=== PATIENT | female | born 1970 | race Caucasian/White ===

== ENCOUNTER 2017-06-05 20:55 | Emergency (ER) | payer OTHER ==
[~2017-06-05] VITALS: Ht 160 cm; Wt 54.0 kg
[~2017-06-05 20:55] MED LIST: IMD/2 PO
[2017-06-05 21:02] VITALS: TEMP 37.3; Ht 160 cm; Wt 54.0 kg
--- NOTE | 2017-06-05 22:24 | DIAGNOSTIC IMAGING REPORT ---
CT SCAN OF THE CERVICAL SPINE CLINICAL HISTORY: Right cervical radiculopathy. COMPARISON STUDY: No priors. TECHNIQUE: CT scan of the cervical spine is performed from the skull base to the upper thoracic spine. Images are reviewed in the axial, sagittal, and coronal planes. IV contrast was not administered for this examination. A dose lowering technique was utilized adhering to the principles of ALARA. CT DOSE: 190.88 mGy.cm FINDINGS: Skeletal structures: The skeletal structures are well mineralized. There is no evidence of fracture or subluxation involving the cervical spine. Vertebral body height is maintained. There is minimal anterolisthesis at C3-C4. Alignment is otherwise preserved. There is straightening of the cervical lordosis with mild reversal centered at C4. The odontoid process and lateral masses are intact. The atlantoaxial articulation is preserved. The spinous processes appear intact. Small anterior osteophytes are seen in the mid to lower cervical region. Uncovertebral and facet arthropathy cause mild right neural frontal stenosis at C4-C5 and C5-C6, as well as on the left at C5-C6. Intervertebral discs: There is mild disc space narrowing seen at C4-C5, C5-C6, and C6-C7. The remaining disc spaces are maintained. Central canal: Small posterior disc osteophyte complexes at C4-C5, C5-C6, and C6-C7 may contribute to mild acquired compromise of the central canal. Soft tissues: The prevertebral and paraspinous soft tissues are within normal limits. Shotty cervical lymph nodes are incidentally noted. Calvarium: The visualized calvarium at the skull base appears intact. Brain parenchyma: Partially visualized brain parenchyma the skull base is within normal limits. Mastoids: The mastoid air cells are well pneumatized. Lung apices: Clear as visualized. IMPRESSION: 1. There is no evidence of fracture or subluxation involving the cervical spine. 2. Mild spondylotic change as above. Electronically signed by: Nhan Alarcon M.D. 06/05/2017 10:23 PM Dictated Date/Time: 06/05/2017 10:19 PM
[2017-06-05] MEDS ORDERED: OMEGCAP2 PO (22:32)
[2017-06-05] MEDS ORDERED: MULT-240 PO (22:32)
[2017-06-05] MEDS ORDERED: MISCCAP55 PO (22:32)
[2017-06-05] MEDS ORDERED: METH4PAK PO (22:53)
[2017-06-05 23:00] VITALS: BP 131/56; PULSE 72; O2SAT 100
--- NOTE | 2017-06-06 00:43 | EMERGENCY ROOM VISIT NOTE ---
History First contact with patient: 21:14 Chief Complaint: SHOULDER PAIN Stated Complaint: R SHOULDER PAIN, SPREADING THROUGH HEAD History of Present Illness The patient is a 46 year old female who presents to the Emergency Room with complaints of right shoulder and neck pain extending to her head with occasional migraine headaches. The patient reports that she recently had EMG tests that were positive for bilateral carpal tunnel syndrome. She is under the care of Dr. Mari at the [facility] orthopedic clinic, but has not had her carpal tunnel release surgery scheduled. The patient reports that she has had intermittent migraines for several years, and usually has neck pain associated with her migraines. It is a side sleeper, and occasionally has headaches and right upper extremity pain when awakening. She denies any recent injury to the neck or shoulder. Her pain is worsened when looking to the left. She has not noticed any loss of statistical developer of the right hand, but does report occasional paresthesias of the entire right hand. The patient is [id number]. The patient has seen a chiropractor in the past for her neck, but has never undergone physical therapy. Her chiropractor did get an x-ray of her neck showing an unspecified bony fusion. The patient has not had any additional advanced MRI studies, including an MRI of the neck. She currently rates her discomfort a 7 out of 10. Review of Systems 10 system review was performed and was negative except for pertinent positives and negatives as indicated in history of present illness Past Medical/Surgical History Medical Problems: (1) Bronchitis Surgical Problems: (1) Previous section Family History Diabetes mellitus Heart disease Hypertension Social History Smoking Status: Current Every Day Smoker Alcohol Use: occasionally Marital Status: Housing Status: lives with family Occupation Status: employed Current/Historical Medications Scheduled Methylprednisolone (Medrol Dosepak), 0 PO DAILY Misc Natural Products (Dandelion Root), 520 MG PO UD Multiple Vitamins W/ Minerals (Womens One Daily), 1 TAB PO DAILY [place]-3 Fatty Acids (Fish Oil), 1 CAP PO DAILY Allergies Uncoded Allergies: BANANA (Allergy, Intermediate, Nausea/Vomiting, GI Symptoms, 06/05/16) Physical Exam Vital Signs Date Time Temp Pulse Resp B/P (MAP) Pulse Ox O2 Delivery O2 Flow Rate FiO2 06/05/17 23:00 72 131/56 100 06/05/17 21:02 37.3 85 18 142/85 100 Room Air Physical Exam CONSTITUTIONAL: Healthy and well nourished. Alert and oriented X 3 with positive affect. She does appear in mild discomfort. HEENT: Normocephalic, atraumatic. Pupils equal, round and reactive. Ears and nares are clear. No scleral icterus or conjunctival injection. NECK: Examination shows worsening right shoulder discomfort with left lateral gaze. No palpable muscle spasms noted. RESPIRATORY: Clear to auscultation bilaterally with no wheezing, crackles, rhonchi or stridor. CARDIOVASCULAR: Regular rate and rhythm with no murmurs, rubs or gallops. MUSCULOSKELETAL: Examination shows tenderness to palpation from the right base of the neck across the trapezius and right interscapular border. No scapular winging noted, or significant worsening discomfort with scapular rotation. She has no significant worsening pain with range of motion of the right shoulder. Equal hand statistical developer bilaterally. Distal pulses are intact. INTEGUMENTARY: No rash or other significant dermatologic conditions noted. NEUROLOGIC: No focal neurologic deficits noted. Right deltoid and right upper extremity sensations are intact. Medical Decision & Procedures ER Provider Diagnostic Interpretation: Noncontrast CT of the cervical spine shows the following: CT SCAN OF THE CERVICAL SPINE CLINICAL HISTORY: Right cervical radiculopathy. COMPARISON STUDY: No priors. TECHNIQUE: CT scan of the cervical spine is performed from the skull base to the upper thoracic spine. Images are reviewed in the axial, sagittal, and coronal planes. IV contrast was not administered for this examination. A dose lowering technique was utilized adhering to the principles of ALARA. CT DOSE: 190.88 mGy.cm FINDINGS: Skeletal structures: The skeletal structures are well mineralized. There is no evidence of fracture or subluxation involving the cervical spine. Vertebral body height is maintained. There is minimal anterolisthesis at C3-C4. Alignment is otherwise preserved. There is straightening of the cervical lordosis with mild reversal centered at C4. The odontoid process and lateral masses are intact. The atlantoaxial articulation is preserved. The spinous processes appear intact. Small anterior osteophytes are seen in the mid to lower cervical region. Uncovertebral and facet arthropathy cause mild right neural frontal stenosis at C4-C5 and C5-C6, as well as on the left at C5-C6. Intervertebral discs: There is mild disc space narrowing seen at C4-C5, C5-C6, and C6-C7. The remaining disc spaces are maintained. Central canal: Small posterior disc osteophyte complexes at C4-C5, C5-C6, and C6-C7 may contribute to mild acquired compromise of the central canal. Soft tissues: The prevertebral and paraspinous soft tissues are within normal limits. Shotty cervical lymph nodes are incidentally noted. Calvarium: The visualized calvarium at the skull base appears intact. Brain parenchyma: Partially visualized brain parenchyma the skull base is within normal limits. Mastoids: The mastoid air cells are well pneumatized. Lung apices: Clear as visualized. IMPRESSION: 1. There is no evidence of fracture or subluxation involving the cervical spine. 2. Mild spondylotic change as above. ED Course Patient history and physical exam were performed. Nurse's notes were reviewed. Vital signs were reviewed and were normal. The patient's blood pressure is normal and will not require PCP evaluation. With the medications were also reviewed. The patient refused any analgesics. I did discuss several different etiologies, explaining that her history and clinical exam findings are most consistent with a right cervical radiculitis. Because she has been having problems with migraines as well, likely cervicogenic etiology, I did suggest performing a noncontrast CT of the neck. The patient was in agreement. CT of the neck does show spondylotic changes another findings as discussed in the previous Diagnostic Interpretation section. It is encouraging that the patient has had a recent EMG study. I did suggest that the patient follow-up with her PCP for further reevaluation. I did suggest that she also follow-up with the [facility], or neurologist to further discuss possible cervicogenic migraines. The patient was encouraged to sleep on her back or in a recliner with a towel wrapped around the neck for support. The patient was provided a prescription for a Medrol dosepak, and encouraged to alternate ibuprofen and Tylenol as needed for additional pain relief. The patient refused any additional perception analgesics because she is very sensitive to medications. The patient was happy with plan of care, and voiced understanding of all discharge instructions. Medical Decision See previous section Impression Primary Impression: Right cervical radiculopathy Departure Information Dispostion Home / Self-Care Condition FAIR Prescriptions Methylprednisolone (MEDROL DOSEPAK) 4 Mg Thad 0 PO DAILY, #1 PKT Prov: Jose Jonas PA 06/05/17 Forms HOME CARE DOCUMENTATION FORM, IMPORTANT VISIT INFORMATION Patient Instructions [facility] Additional Instructions Intermittently apply ice to the base of the neck. Either sleep on your back or in a recliner with a towel wrapped around your neck for support. Ibuprofen 800 mg and/or Tylenol 1000 mg every 8 hours. You may also alternate these medications for more effective pain relief: Ibuprofen --4 HRS--> Tylenol --4 HRS--> ibuprofen --4 HRS--> Tylenol .... Suggest taking Medrol Dosepak for additional symptomatic relief. Follow-up with your family doctor if symptoms are not improving within the next week.
== END 2017-06-05 23:01 | disposition home or self-care (01) ==
LOC: C.EDB 20:56 → C.EDD 23:01
DX: M54.12 Radiculopathy, cervical region (principal); F17.200 Nicotine dependence, unspecified, uncomplicated; Z79.899 Other long term (current) drug therapy; Z98.890 Other specified postprocedural states; Z91.018 Allergy to other foods; Z83.3 Family history of diabetes mellitus; Z82.49 Family history of ischemic heart disease and other diseases of the circulatory system